=== PATIENT | female | born 1980 | race Two or more races ===

== ENCOUNTER 2017-02-04 17:51 | Emergency (ER) | payer SELFPAY ==
[~2017-02-04] VITALS: Ht 157.5 cm; Wt 47.6 kg
[2017-02-04] MEDS ORDERED: NKM (18:02)
[2017-02-04 18:06] VITALS: BP 125/85
--- NOTE | 2017-02-04 18:14 | Emergency Room Report ---
History of Present Illness General Chief Complaint: Skin Rash/Abscess Source: Patient Present Illness HPI 36 YO Female presents to the ED c/o erythema, swelling, and tenderness 8/10 in severity to a localized area of the right breast x 3 days. pt. reports increased temperature to palpation. pt. denies d/c from the nipple, pt. is not . pt. denies fevers, chills, abdominal pain, or rash. pt. reports the first day she believes she got a bug bite on the breast as there was a small area of redness with some itching, pt. reports itching progressed to burning and to the symptoms she is presenting with now. Denies lesions/rashes elsewhere on the body. Denies new medications or body washes or creams. Denies swelling of the lips, tongue , throat or airway. Denies wheezing, or shortness of breath. Denies recent travel, recent illness or ill contacts. denies blisters, oral lesions, or sloughing of the skin. Denies CP, Palpitations, LOC, AMS, dizziness, Changes in Vision, Sensation, paresthesias, or a sudden severe headache. Allergies: Coded Allergies: No Known Allergies (Unverified , 02/04/17) Patient History Past Medical History: see triage record Past Surgical History: none Pertinent Family History: none Now: No Reviewed Nursing Documentation: PMH: Agreed, PSxH: Agreed Nursing Documentation-PMH Past Medical History: No Stated History Review of Systems All Other Systems: negative except mentioned in HPI Physical Exam Vital Signs Date Time Temp Pulse Resp B/P (MAP) Pulse Ox O2 Delivery O2 Flow Rate FiO2 02/04/17 17:56 98.1 98 16 125/85 98 Room Air Sp02 EP Interpretation: reviewed, normal General Appearance: no apparent distress, alert, GCS 15, non-toxic Head: normocephalic, atraumatic Eyes: bilateral eye normal inspection, bilateral eye PERRL ENT: hearing grossly normal, normal voice Neck: full range of motion Respiratory: lungs clear, normal breath sounds, speaking full sentences Cardiovascular #1: regular rate, rhythm Rectal: deferred Musculoskeletal: back normal, gait/station normal, normal range of motion, non- tender Neurologic: alert, oriented x3, responsive, motor strength/tone normal, sensory intact, speech normal Skin: no rash, warm/dry, well hydrated, other - localized area of induration, erythema, and tenderness to the right breast in the 9 o'clock position without fluctuance. approximatly 3cm in diameter. Lymphatic: no adenopathy Medical Decision Making PA Attestation Dr. Campbell is my supervising Physician whom patient management has been discussed with. Diagnostic Impression: Primary Impression: Cellulitis of breast ER Course 36 YO Female presents to the ED c/o erythema, swelling, and tenderness 8/10 in severity to a localized area of the right breast x 3 days. pt. reports increased temperature to palpation. pt. denies d/c from the nipple, pt. is not . pt. denies fevers, chills, abdominal pain, or rash. pt. reports the first day she believes she got a bug bite on the breast as there was a small area of redness with some itching, pt. reports itching progressed to burning and to the symptoms she is presenting with now. Denies lesions/rashes elsewhere on the body. Denies new medications or body washes or creams. Denies swelling of the lips, tongue , throat or airway. Denies wheezing, or shortness of breath. Denies recent travel, recent illness or ill contacts. denies blisters, oral lesions, or sloughing of the skin. Denies CP, Palpitations, LOC, AMS, dizziness, Changes in Vision, Sensation, paresthesias, or a sudden severe headache. Ddx considered but are not limited to cellulitis, mastitis, malignancy. Vital signs: are WNL, pt. is afebrile H&PE are most consistent with cellulitis of the right breast. ORDERS: none required at this time, the diagnosis is clinical ED INTERVENTIONS: None required at this time. DISCHARGE: At this time pt. is stable for d/c to home. Will provide printed patient care instructions, and any necessary prescriptions. Care plan and follow up instructions have been discussed with the patient prior to discharge. Last Vital Signs Date Time Temp Pulse Resp B/P (MAP) Pulse Ox O2 Delivery O2 Flow Rate FiO2 02/04/17 17:56 98.1 98 16 125/85 98 Room Air Disposition: HOME, SELF-CARE Condition: Stable Scripts Bacitracin/Polymyxin B Sulfate (BACITRACIN-POLYMYXIN OINTMENT) 28.35 Gm Oint...g. 1 APPLIC TP BID, #28.3 GM Prov: Penny Rivera 02/04/17 Fluconazole (FLUCONAZOLE) 100 Mg Tablet 100 MG ORAL DAILY for 3 Days, #3 TAB 0 Refills Prov: Penny Rivera 02/04/17 Acetaminophen* (TYLENOL EXTRA STRENGTH*) 500 Mg Tablet 500 MG ORAL Q8H Y for Prn Headache/Temp > 101, #30 TAB 0 Refills Prov: Penny Rivera 02/04/17 Cephalexin* (KEFLEX*) 500 Mg Capsule 500 MG ORAL EVERY 12 HOURS for 7 Days, #14 CAP 0 Refills Prov: Penny Rivera 02/04/17 Patient Instructions: Cellulitis Additional Instructions: Take medications as directed. Follow up with a Primary Care Provider in 3-5 days, even if your symptoms have resolved. --Please review list of primary care clinics, if you do not already have a primary care provider Return sooner to ED if new symptoms occur, or current symptoms become worse. - Please note that this Emergency Department Report was dictated using [employer] electrical engineering technology software, occasionally this can lead to erroneous entry secondary to interpretation by the dictation equipment. Penny Rivera Feb 04, 2017 18:13
[2017-02-04] MEDS ORDERED: FLUCONAZOLE100 MG ORAL (18:15)
[2017-02-04] MEDS ORDERED: TYLENOL EXTRA500 MG ORAL (18:15)
[2017-02-04] MEDS ORDERED: BACITRACIN-P28.35 GM TP (18:15)
[2017-02-04] MEDS ORDERED: CEPHALEXIN500 MG ORAL (18:15)
[2017-02-04 18:35] VITALS: BP 125/85
== END 2017-02-04 18:35 | disposition home or self-care (01) ==
LOC: EMR 18:20
DX: N61.0 Mastitis without abscess (principal)
CPT/HCPCS: 99284